=== PATIENT | female | born 1935 | race Caucasian/White ===

== ENCOUNTER → 2017-04-01 | Outpatient (CLI) | payer MEDICARE, OTHER ==
[~2017-04-01] MED LIST: ALPRAZOLAM0.5 MG PO; ASPIR 8181 MG PO; BUSPAR 5MG TABLE5 MG PO; BUSPIRONE HCL30 MG PO; COMBIVENT0.074 GM/I; DURAGESIC 50 MCG1 EA TD; ELIQUIS5 MG PO; FISH OIL 1,2001 EACH; FISH OIL 1,2001 EACH PO; FISH OIL EC 1,1 EAC1 PO; HYDROXYZINE HCL25 MG PO; IPRAT-ALBUT 0.5-3 ML INH; KLOR-CON 1010 MEQ PO; LASIX 40 MG TAB40 MG PO; LIPITOR TAB 2020 MG PO; LOPRESSOR 25 MG25 MG PO; MIRALAX17 GM PO; NITROGLYCERIN0.4 MG SL; NORCO 5-325 TA1 EACH PO; OMEPRAZOLE20 M1 PO; OMEPRAZOLE20 MG; OMNICEF 300 MG300 MG PO; PULMICORT0.5 MG/21 INH; SINGULAIR10 MG PO; SYMBICORT 16010.2 GM INH; TRAMADOL HCL50 MG PO; VIT D3; VIT D3 PO; VITAMIN D250000 UNIT PO; ZOLOFT50 MG PO
== END ==
LOC: RAD 14:19
DX: R06.00 Dyspnea, unspecified (principal); Z95.0 Presence of cardiac pacemaker; R93.8 Abnormal findings on diagnostic imaging of other specified body structures
CPT/HCPCS: 71020

== ENCOUNTER 2017-04-05 08:05 | Inpatient (IN) | payer MEDICARE, OTHER ==
[~2017-04-05] VITALS: Ht 160 cm; Wt 64.2 kg
[~2017-04-05 08:05] MED LIST changes: -ASPIR 8181 MG PO; -HYDROXYZINE HCL25 MG PO; -KLOR-CON 1010 MEQ PO; -LOPRESSOR 25 MG25 MG PO; -NITROGLYCERIN0.4 MG SL; -TRAMADOL HCL50 MG PO; -VITAMIN D250000 UNIT PO
[2017-04-05 08:55] LABS: HEMOGLOBIN 12.4 gm/dl (12.3-15.3); RED BLOOD COUNT 4.57 M/UL (4.00-5.10)
[2017-04-05] MEDS ORDERED: LOPRESSOR 25 MG25 MG PO (09:01)
[2017-04-05] MEDS ORDERED: HYDROXYZINE HCL25 MG PO (16:38)
[2017-04-05] MEDS ORDERED: KLOR-CON 1010 MEQ PO (16:44)
[2017-04-05] MEDS ORDERED: TRAMADOL HCL50 MG PO (16:45)
[2017-04-05] MEDS ORDERED: VITAMIN D250000 UNIT PO (16:46)
[2017-04-05] MEDS ORDERED: FISH OIL EC 1,1 EAC1 PO (17:28)
[2017-04-06 06:15] LABS: HEMOGLOBIN 11.4 gm/dl (12.3-15.3); RED BLOOD COUNT 4.2 M/UL (4.00-5.10); WHITE BLOOD COUNT 8.7 K/UL (4.5-11.0)
[2017-04-08] MEDS ORDERED: OMNICEF 300 MG300 MG PO (10:16)
[2017-05-27] MEDS ORDERED: ASPIR 8181 MG PO (10:22)
[2017-05-27] MEDS ORDERED: NITROGLYCERIN0.4 MG SL (10:24)
== END 2017-04-08 09:00 | disposition home health service (06) | DRG 291 ==
LOC: ER1 08:05 → ZEROF 10:30 → M/S 16:24
PROVIDERS: Emergency Medicine; ADMIT Internal Medicine
DX: I11.0 Hypertensive heart disease with heart failure (principal); J96.01 Acute respiratory failure with hypoxia; B37.0 Candidal stomatitis; J44.0 Chronic obstructive pulmonary disease with (acute) lower respiratory infection; J45.901 Unspecified asthma with (acute) exacerbation; I50.33 Acute on chronic diastolic (congestive) heart failure; E87.6 Hypokalemia; I48.2 Chronic atrial fibrillation; J20.9 Acute bronchitis, unspecified; I08.0 Rheumatic disorders of both mitral and aortic valves; I25.10 Atherosclerotic heart disease of native coronary artery without angina pectoris; K21.9 Gastro-esophageal reflux disease without esophagitis; E78.00 Pure hypercholesterolemia, unspecified; M51.36 Other intervertebral disc degeneration, lumbar region; M47.896 Other spondylosis, lumbar region; G89.29 Other chronic pain; F32.9 Major depressive disorder, single episode, unspecified; F41.9 Anxiety disorder, unspecified; Z95.0 Presence of cardiac pacemaker; Z95.1 Presence of aortocoronary bypass graft; Z95.5 Presence of coronary angioplasty implant and graft; Z79.01 Long term (current) use of anticoagulants; Z99.81 Dependence on supplemental oxygen; Z79.51 Long term (current) use of inhaled steroids; Z79.899 Other long term (current) drug therapy; Z88.3 Allergy status to other anti-infective agents; Z88.4 Allergy status to anesthetic agent; Z88.8 Allergy status to other drugs, medicaments and biological substances; Z95.2 Presence of prosthetic heart valve; Z90.710 Acquired absence of both cervix and uterus; Z98.890 Other specified postprocedural states; Z80.3 Family history of malignant neoplasm of breast; Z82.49 Family history of ischemic heart disease and other diseases of the circulatory system
CPT/HCPCS: ECHO; 36415; 71020; 80048; 80053; 82550; 82553; 83605; 83874; 83880; 84132; 84484; 85025; 85027; 87040; 93005; 93306; 94640; 94664; 94760; 96374; 96375; 99285; J0456; J0696; J1940; J2930; J7030; J7050; Q0162